=== PATIENT | male | born 1940 | race Caucasian/White ===

== ENCOUNTER 2019-07-07 06:56 | Day surgery (SDC) | payer MEDICARE ==
[~2019-07-07 06:56] MED LIST: ACETAMINOPHEN 1,000 MG/100 ML BTL IVPB ONE; CEFAZOLIN 2 Gram 2 GM/50 ML BAG IVPB ONE
[2019-07-07] MEDS ORDERED: KETOROLAC 30 MG/ML VIAL IVP ONE (06:57)
[2019-07-07] MEDS ORDERED: ONDANSETRON HCL IV 4 MG/2 ML VIAL IVP ONE (06:57)
[2019-07-07] MEDS ORDERED: PROPOFOL 10 MG/ML VIAL IV ONE (06:57)
[2019-07-07] MEDS ORDERED: LIDOCAINE 2% MDV (20MG/ML) 20ML VIAL IV ONE (06:57)
[2019-07-07] MEDS ORDERED: MIDAZOLAM HCL 2MG/2ML VIAL IV ONE (06:57)
[2019-07-07] MEDS ORDERED: FENTANYL PF 100MCG/2ML VIAL IV ONE (06:57)
[2019-07-07] MEDS ORDERED: SEVOFLURANE 250 ML INH ONE (06:57)
[2019-07-07 07:09] LABS: ABSOLUTE NEUTROPHIL COUNT 1.54; BASO % 1.1 % (0-6); GRAN % 34.9 % (47-80); HEMATOCRIT 38.7 % (42.0-52.0); HEMOGLOBIN 12.6 gm/dl (14.0-18.0); LYMPH % 47.5 % (16-45); MEAN CELL VOLUME 90.6 fl (81-97); MEAN CORPUSCULAR HEMOGLOBIN 29.5 pg (27-33); MEAN CORPUSCULAR HGB CONC 32.6 g/dl (32-36); MEAN PLATELET VOLUME 8.4 fl (7.4-10.4); MONO % 11.5 % (0-9); PLATELET COUNT 226 K/uL (130-400); RED BLOOD COUNT 4.27 M/uL (4.40-5.70); RED CELL DISTRIBUTION WIDTH 13.7 % (11.5-14.5); WHITE BLOOD COUNT W/O DIFF 4.4 K/uL (4.2-12.2)
[2019-07-07 07:22] LABS: BLOOD UREA NITROGEN 22 mg/dL (8-23); CREATININE 1.1 mg/dL (0.7-1.2); EST GLOMERULAR FILTRATION RATE > 60 mL/min; GLUCOSE,RANDOM 110 mg/dL (74-109)
[2019-07-07] MEDS ORDERED: RINGERS SOLUTION,LACTATED 1,000 ML IV ONE (08:17)
[2019-07-07] MEDS ORDERED: BUPIVACAINE 0.25% W/EPI MPF 30ML VIAL SQ ONE (08:29)
[2019-07-07] MEDS ORDERED: HYDROCODONE/APAP 5/325MG TABLET PO ONE (09:28)
--- NOTE | 2019-07-08 08:20 | Operative Note ---
DATE OF SURGERY: 07/07/2019 PREOPERATIVE DIAGNOSIS: Incarcerated umbilical hernia. POSTOPERATIVE DIAGNOSIS: Incarcerated umbilical hernia. OPERATION: Open umbilical herniorrhaphy with mesh. PROCEDURE: The patient is a 78-year-old male who is brought to the operating room and placed in a supine position. General anesthesia was administered per the department of anesthesia. The patient's abdomen was prepped and draped in the usual fashion. Adequate timeout was performed. He did receive preoperative antibiotic. At this time, the periumbilical region was anesthetized with a total of 10 mL of 0.25% Sensorcaine with epinephrine. A 4 cm curvilinear infraumbilical incision was made. This was carried down to the anterior rectus fascia. The umbilical stalk was dissected free from the overlying umbilical skin. Clean circumferential fascial edges were obtained. The hernia sac defect measured about 1.5 cm. The hernia sac was then amputated. It did contain incarcerated omentum. This was reduced back into the peritoneal cavity. At this time, an [address] mesh was obtained. This was placed in an intraperitoneal position with excellent overlap of the fascia. The upper skirt was sutured to the anterior rectus fascia with 2-0 Vicryl in 6 spots. The tail was overlapped to the fascia and sutured in place as well. The umbilical skin was then closed in layers with 3-0 and 4-0 Vicryl. Dermabond was placed. He was taken to the recovery room in stable condition. FINDINGS ON SURGERY: Incarcerated umbilical hernia containing omentum repaired as above. NEYD
== END 2019-07-07 09:58 | disposition home or self-care (01) ==
LOC: SUR 06:56
PROVIDERS: ATTEND Surgery
DX: K42.0 Umbilical hernia with obstruction, without gangrene (principal); E78.00 Pure hypercholesterolemia, unspecified; D64.9 Anemia, unspecified; E03.9 Hypothyroidism, unspecified; Z95.5 Presence of coronary angioplasty implant and graft
CPT/HCPCS: 80048; 85025; J1885; J2405; J7120